=== PATIENT | male | born 1995 | race Caucasian/White ===

== ENCOUNTER 2019-07-15 10:29 | Emergency (ER) | payer OTHER, SELFPAY ==
[2019-07-15 10:38] VITALS: BP 150/79; PULSE 70; RESP 16; TEMP 36.3; O2SAT 98; BMI 26.6
--- NOTE | 2019-07-15 10:42 | DI.RAD.S_ITS ---
PROCEDURE: XR FINGER RT MIN 2V INDICATIONS: lac/joint involved. TECHNIQUE: AP hand, 2 views of the second finger(s) acquired. COMPARISON: None. FINDINGS: Bones: No fractures or dislocations. No suspicious bony lesions. Soft tissues: No suspicious soft tissue calcifications. IMPRESSION: No gross acute secondary to fracture or dislocation. Dictated by: Dudley Mcallister M.D. on 07/15/2019 at 11:14 Approved by: Dudley Mcallister M.D. on 07/15/2019 at 11:20
[2019-07-15] MEDS: TET,DIPH,PERTUSS(ACELL),VAC/PF 0.5 ML SYRINGE IM (10:44)
[2019-07-15] MEDS: LIDOCAINE 2% INJ MDV 20 ML INJ (11:31)
--- NOTE | 2019-07-15 12:29 | ED.UPPEXIN ---
HPI - Extremity Injury (Upper) <LAYA Sharpe - Last Filed: 07/15/19 15:15> General Chief Complaint: Extremity Injury, Upper Stated Complaint: right hand pointer finger injury Time Seen by Provider: 07/15/19 11:04 Source: patient and family Mode of arrival: Ambulatory Limitations: no limitations History of Present Illness HPI narrative: The patient is a 24-year-old male presents with his for chief complaint of a right hand pointer finger injury. He states he has a laceration from a knife while he was cutting weeds off of his boat propeller. Unknown last tetanus. States that he has full range of motion of his right pointer finger. Has not washed out. States that he had cleaned up all his hunting here after, so he is very concerned about infection Related Data Allergies Allergy/AdvReac Type Severity Reaction Status Date / Time No Known Drug Allergies Allergy Verified 07/15/19 10:51 Review of Systems <LAYA Sharpe - Last Filed: 07/15/19 15:15> Review of Systems Narrative: GENERAL: Denies chills, fatigue, malaise, fever, sweats. HEENT: Denies sinus pain, ear pain, sore throat, difficulty swallowing, dizziness. RESPIRATORY: Denies dyspnea, cough, wheezing, hemoptysis, sputum. CARDIOVASCULAR: Denies chest pain, palpitations, orthopnea, edema, GASTROINTESTINAL: Denies nausea, vomiting, abdominal pain, diarrhea, constipation, melena. : Denies dysuria, frequency, incontinence, hematuria, urinary retention. MUSCULOSKELETAL: See HPI SKIN: See HPI NEUROLOGIC: Denies weakness, headache, numbness, change in speech, confusion, seizures, incoordination. PSYCHIATRIC: No concerning psychosocial issues. 12 point review of systems is negative except for those stated above Patient History <LAYA Sharpe - Last Filed: 07/15/19 15:15> Social History Smoking Status: Never smoker Smoking Status: Never smoker Substance Use Type: does not use Exam <LAYA Sharpe - Last Filed: 07/15/19 15:15> Narrative Exam Narrative: GENERAL: This is a well-nourished, well-developed patient, no acute distress HEAD: Atraumatic. Normocephalic. No temporal or scalp tenderness. EYES: Pupils equal round and reactive. Extraocular motions intact. No scleral icterus. No injection or drainage. ENT: Nose without bleeding, purulent drainage or septal hematoma. Throat without erythema, tonsillar hypertrophy or exudate. Uvula midline. Airway patent. NECK: Trachea midline. No JVD or lymphadenopathy. Supple, nontender, no meningeal signs. CARDIOVASCULAR: Regular rate and rhythm RESPIRATORY: No cough. No increased respiratory effort. No accessory muscle use. EXTREMITIES: Laceration as documented right 2nd digit. Able to flex and extend right 2nd digit against resistance. Capillary refill less than 2 seconds. Positive right radial pulse. No active bleeding on initial exam. BACK: Nontender without deformity or crepitance. No flank tenderness. NEURO: AOx3. SKIN: 2.5 cm laceration on lateral aspect of right 2nd digit. Overlying lateral aspect middle phalange and dorsum of mcp joint. No obvious foreign body. No obvious muscle or tendon involvement. Initial Vital Signs Initial Vital Signs: Vital Signs Temperature 97.4 F L 07/15/19 10:38 Pulse Rate 70 07/15/19 10:38 Respiratory Rate 16 07/15/19 10:38 Blood Pressure 150/79 H 07/15/19 10:38 Pulse Oximetry 98 07/15/19 10:38 <Jocelyn Morales DO - Last Filed: 07/15/19 19:02> Initial Vital Signs Initial Vital Signs: Vital Signs Temperature 97.4 F L 07/15/19 10:38 Pulse Rate 70 07/15/19 10:38 Respiratory Rate 16 07/15/19 10:38 Blood Pressure 150/79 H 07/15/19 10:38 Pulse Oximetry 98 07/15/19 10:38 Procedures <DELMIS Sharpe-BC - Last Filed: 07/15/19 15:15> Laceration Repair Laceration 1: Site: hand Side (If applicable): right Size (cm): 2.5 Description: linear Depth: simple, single layer Local Anesthetic: lidocaine 2% (Digital block) Amount of anesthesia used (mL): 5 Pre-repair: wound explored, irrigated extensively (Cleansed with Hibiclens, sterile water) and deep structures intact Skin layer closed with: nylon Number of sutures: 5 Technique: simple, interrupted Course <LAYA Sharpe - Last Filed: 07/15/19 15:15> Orders Ordered: ED Orders 07/15/19 10:42 XR finger RT min 2V Stat Discontinued Medications Diphtheria/Tetanus/Acell Pertussis (Adacel) 0.5 ml IM .ONCE ONE Stop: 07/15/19 10:39 Last Admin: 07/15/19 10:44 Dose: 0.5 ml Documented by: MEISENB Lidocaine HCl (Xylocaine 2%) 20 ml INJ INTRA-OP ONE Stop: 07/15/19 11:19 Last Admin: 07/15/19 11:31 Dose: 20 ml Documented by: BTONER Vital Signs Vital signs: Vital Signs - 8 hr 07/15/19 12:48 Pulse Rate 75 Respiratory Rate 16 Blood Pressure 138/78 Pulse Oximetry 100 <Jocelyn Morales DO - Last Filed: 07/15/19 19:02> Orders Ordered: ED Orders 07/15/19 10:42 XR finger RT min 2V Stat Discontinued Medications Diphtheria/Tetanus/Acell Pertussis (Adacel) 0.5 ml IM .ONCE ONE Stop: 07/15/19 10:39 Last Admin: 07/15/19 10:44 Dose: 0.5 ml Documented by: MEISENB Lidocaine HCl (Xylocaine 2%) 20 ml INJ INTRA-OP ONE Stop: 07/15/19 11:19 Last Admin: 07/15/19 11:31 Dose: 20 ml Documented by: BTONER Vital Signs Vital signs: Vital Signs - 8 hr 07/15/19 12:48 Pulse Rate 75 Respiratory Rate 16 Blood Pressure 138/78 Pulse Oximetry 100 MDM - Extremity Injury (Upper) <LAYA Sharpe - Last Filed: 07/15/19 15:15> Imaging Data Extremity x-ray #1: Radiologist's Impression: [address] [address] XRay Report Signed Patient: Meliton Rodriguez TMR#: [id number] : 1995Acct:[id number] Age/Sex: 24 / MDate of Service: 07/15/19 Loc: ED Accession Number: [id number] Procedure: XR finger RT min 2V Ordering Provider: Mank,Jocelyn C D.O. PROCEDURE: XR FINGER RT MIN 2V INDICATIONS: lac/joint involved. TECHNIQUE: AP hand, 2 views of the second finger(s) acquired. COMPARISON: None. FINDINGS: Bones: No fractures or dislocations. No suspicious bony lesions. Soft tissues: No suspicious soft tissue calcifications. IMPRESSION: No gross acute secondary to fracture or dislocation. Dictated by: Dudley Mcallister M.D. on 07/15/2019 at 11:14 Approved by: Dudley Mcallister M.D. on 07/15/2019 at 11:20 [facility] Narrative Medical decision making narrative: The patient is a 24-year-old male who presents with a chief complaint of laceration. Laceration closed as an procedural note. Negative x-ray. Tetanus updated. Discussed at length monitoring for signs and symptoms of infection, coming back to the emergency department for any acute concerns and following up with primary care provider. Patient has no questions or concerns upon discharge and states understanding return precautions as well as follow-up care including suture removal in 7 days. Discharge Plan Departure Patient Disposition: Home Clinical Impression: Laceration of finger Qualifiers: Encounter type: initial encounter Finger: index finger Damage to nail status: without damage Foreign body presence: without foreign body Laterality: right Qualified Code(s): S61.210A - Laceration without foreign body of right index finger without damage to nail, initial encounter Discharge Date/Time: 07/15/19 12:48 Instructions: How to Care for a Laceration After Repair, DI for Laceration Repair, DI for Laceration Repair -- Finger Activity Restrictions/Additional Instructions: Please keep your wound clean and dry. Please monitor for signs and symptoms of infection such as redness pus swelling etcetera. Please follow up if these occur. Please come back to the emergency department for any acute concerns such as circulation concerns. Today we updated her tetanus. I placed several sutures in your finger. Please follow up for suture removal in approximately 7 days. Please come back to the emergency department for any acute concerns. Please follow-up with primary care provider. Referrals: [facility] [Provider Group]
[2019-07-15 12:48] VITALS: BP 138/78; PULSE 75; RESP 16; O2SAT 100
--- NOTE | 2019-07-15 12:48 | PC.NURSE ---
blue foam splint applied to rt index finger.
== END 2019-07-15 12:48 | disposition home or self-care (01) ==
PROVIDERS: Emergency Provider Nurse Practitioner Family
DX: S61.216A Laceration without foreign body of right little finger without damage to nail, initial encounter (principal); W26.0XXA Contact with knife, initial encounter; Z23 Encounter for immunization
CPT/HCPCS: 12001; 64450; 73140; 99283; 90715